=== PATIENT | female | born 1975 | race Caucasian/White ===

== ENCOUNTER 2020-12-30 00:10 | Observation (INO) ==
[2020-12-30 00:44] LABS: Basophils # 0.1 10*3/uL (0.0-0.2); Basophils % 0.5 % (0.0-0.8); Eosinophils # 0.2 10*3/uL (0.0-0.87); Eosinophils % 1.7 % (0.00-10.9); Hematocrit 40.5 VOL% (35.7-47.0); Hemoglobin 13.3 GM/DL (12.0-16.0); Immature Granulocytes % 0.5 %; Immature Granulocytes Absolute 0.05 #; Lymphocytes # 3.1 10*3/uL (1.4-4.0); Mean Corpuscular HGB Conc 32.8 GM/DL (32-36); Mean Corpuscular Volume 96.7 FL (87-102); Monocytes % 8.4 % (1.7-12.7); Neutrophils % 60.9 % (38.7-73.9); Platelet Count 348 T/CUMM (130-400); Red Blood Count 4.19 MC/CUMM (3.8-5.5); Red Cell Distribution Width 13.8 % (9.3-17.3); White Blood Count 11.1 T/CUMM (4-12)
[2020-12-30 00:46] LABS: INR 0.9; PT Patient Result 10.6 SECS (10.5-12.0); Partial Thromboplastin Time 25.3 SECS (23.9-33.8)
[2020-12-30 00:55] LABS: Albumin 3.2 G/DL (3.4-5.0); Bilirubin,Total 0.7 MG/DL (0.20-1.00); Calcium 8.6 MG/DL (8.5-10.1); Osmolality,Calculated 279.3 MOS/KG (273-304); Potassium 3.8 MMOL/L (3.5-5.1); Total Protein 5.9 G/DL (6.4-8.2)
[2020-12-30] MEDS ORDERED: DEXTROSE 50% 25 GM/50 ML VIAL IV PRN (01:51)
[2020-12-30] MEDS ORDERED: GLUCAGON 1 MG VIAL IM PRN (01:51)
[2020-12-30] MEDS ORDERED: ONDANSETRON 4 MG/2 ML VIAL IV PRN (01:51)
[2020-12-30] MEDS ORDERED: MORPHINE 2 MG/1 ML SYRINGE IV PRN (01:51)
[2020-12-30] MEDS ORDERED: DICLOFENAC SODIUM 75 MG TABLET PO PRN (02:07)
[2020-12-30] MEDS ORDERED: CYCLOBENZAPRINE 10 MG TABLET PO PRN (02:07)
[2020-12-30 06:27] LABS: Basophils # 0.1 10*3/uL (0.0-0.2); Basophils % 0.5 % (0.0-0.8); Eosinophils # 0.2 10*3/uL (0.0-0.87); Eosinophils % 2.1 % (0.00-10.9); Hematocrit 38.4 VOL% (35.7-47.0); Hemoglobin 12.6 GM/DL (12.0-16.0); Immature Granulocytes % 0.5 %; Immature Granulocytes Absolute 0.06 #; Lymphocytes # 2.9 10*3/uL (1.4-4.0); Lymphocytes % 25.1 % (21.3-54.2); Mean Corpuscular HGB Conc 32.8 GM/DL (32-36); Mean Corpuscular Volume 98.2 FL (87-102); Mean Platelet Volume 9.9 FL (9.6-12.0); Monocytes % 9.7 % (1.7-12.7); Neutrophils % 62.1 % (38.7-73.9); Platelet Count 298 T/CUMM (130-400); Red Blood Count 3.91 MC/CUMM (3.8-5.5); Red Cell Distribution Width 13.9 % (9.3-17.3); White Blood Count 11.7 T/CUMM (4-12)
[2020-12-30] MEDS: NITROGLYCERIN 2% OINT 1 INCH/GM PACK TOP SCH ×3 (06:40→20:37)
[2020-12-30 07:07] LABS: Albumin 2.7 G/DL (3.4-5.0); Bilirubin,Total 0.6 MG/DL (0.20-1.00); Calcium 7.9 MG/DL (8.5-10.1); Osmolality,Calculated 277.4 MOS/KG (273-304); Potassium 3.3 MMOL/L (3.5-5.1); Total Protein 5.6 G/DL (6.4-8.2)
[2020-12-30] MEDS: ACETAMINOPHEN 325 MG TABLET PO PRN ×2 (08:40→16:17)
[2020-12-30] MEDS: GABAPENTIN 600 MG TABLET PO SCH ×3 (08:41→23:08)
[2020-12-30] MEDS: LOSARTAN 50 MG TABLET PO SCH (08:41)
[2020-12-30] MEDS: METOPROLOL SUCCINATE XL 25 MG TABLET PO SCH (08:42)
[2020-12-30] MEDS: DULoxetine 30 MG CAPSULE PO SCH (08:42)
[2020-12-30] MEDS: POTASSIUM CHLORIDE 10 MEQ TABLET PO SCH (08:43)
[2020-12-30] MEDS: ASPIRIN EC 325 MG TABLET PO SCH (10:36)
[2020-12-30] MEDS: FUROSEMIDE 40 MG TABLET PO SCH (10:36)
[2020-12-30] MEDS: CHOLECALCIFEROL 1,000 UNIT TABLET PO SCH (10:36)
[2020-12-30] MEDS: PANTOPRAZOLE 40 MG TABLET PO SCH (10:36)
[2020-12-30] MEDS: MAGNESIUM OXIDE 400 MG TABLET PO SCH (10:37)
[2020-12-30] MEDS: ENOXAPARIN 120 MG/0.8 ML SYRINGE SUBCUT SCH ×2 (10:39→20:37)
[2020-12-30] MEDS: DOCUSATE SODIUM 100 MG CAPSULE PO SCH (20:36)
[2020-12-30] MEDS: ASCORBIC ACID 500 MG TABLET PO SCH (20:36)
[2020-12-31] MEDS: NITROGLYCERIN 2% OINT 1 INCH/GM PACK TOP SCH ×2 (02:31→08:59)
[2020-12-31 05:04] LABS: Basophils # 0.1 10*3/uL (0.0-0.2); Basophils % 0.6 % (0.0-0.8); Eosinophils # 0.3 10*3/uL (0.0-0.87); Eosinophils % 2.3 % (0.00-10.9); Hematocrit 41.1 VOL% (35.7-47.0); Hemoglobin 13.3 GM/DL (12.0-16.0); Immature Granulocytes % 0.3 %; Immature Granulocytes Absolute 0.04 #; Lymphocytes # 3.2 10*3/uL (1.4-4.0); Mean Corpuscular HGB Conc 32.4 GM/DL (32-36); Mean Corpuscular Volume 97.4 FL (87-102); Mean Platelet Volume 10.1 FL (9.6-12.0); Monocytes % 8.2 % (1.7-12.7); Neutrophils % 61.6 % (38.7-73.9); Platelet Count 350 T/CUMM (130-400); Red Blood Count 4.22 MC/CUMM (3.8-5.5); Red Cell Distribution Width 13.7 % (9.3-17.3); White Blood Count 11.8 T/CUMM (4-12)
[2020-12-31 05:27] LABS: Calcium 8.2 MG/DL (8.5-10.1); Osmolality,Calculated 275.5 MOS/KG (273-304); Potassium 3.9 MMOL/L (3.5-5.1)
[2020-12-31] MEDS: GABAPENTIN 600 MG TABLET PO SCH (08:59)
[2020-12-31] MEDS: LOSARTAN 50 MG TABLET PO SCH (08:59)
[2020-12-31] MEDS: METOPROLOL SUCCINATE XL 25 MG TABLET PO SCH (09:00)
[2020-12-31] MEDS: CHOLECALCIFEROL 1,000 UNIT TABLET PO SCH (09:00)
[2020-12-31] MEDS: ASPIRIN EC 325 MG TABLET PO SCH (09:00)
[2020-12-31] MEDS: FUROSEMIDE 40 MG TABLET PO SCH (09:00)
[2020-12-31] MEDS: MAGNESIUM OXIDE 400 MG TABLET PO SCH (09:00)
[2020-12-31] MEDS: DULoxetine 30 MG CAPSULE PO SCH (09:00)
[2020-12-31] MEDS: ENOXAPARIN 120 MG/0.8 ML SYRINGE SUBCUT SCH (09:01)
[2020-12-31] MEDS: DOCUSATE SODIUM 100 MG CAPSULE PO SCH (09:01)
[2020-12-31] MEDS: POTASSIUM CHLORIDE 10 MEQ TABLET PO SCH (09:01)
[2020-12-31] MEDS: PANTOPRAZOLE 40 MG TABLET PO SCH (09:01)
[2020-12-31] MEDS: ASCORBIC ACID 500 MG TABLET PO SCH (09:01)
[2020-12-31 13:11] VITALS: BP 109/62
== END 2020-12-31 14:15 | disposition home or self-care (01) ==
LOC: N.ED 00:10 → N.EDINP 00:10 → N.2E 04:11 → N.TELEN 17:45
PROVIDERS: ADMIT Internal Medicine; ATTEND Internal Medicine